=== PATIENT | female | born 1965 | race Caucasian/White ===

== ENCOUNTER 2024-12-05 06:26 | Emergency (ER) | payer OTHER ==
[~2024-12-05] VITALS: Ht 149.9 cm; Wt 79.8 kg
[2024-12-05 06:57] LABS: BASOPHILS # (AUTO) 0.08 K/uL (0.00-0.20); BASOPHILS % (AUTO) 0.7 % (0.0-5.0); EOSINOPHILS # (AUTO) 0.36 K/uL (0.00-0.70); HEMATOCRIT 41.9 % (36-48); IMMATURE GRANULOCYTE ABSOLUTE 0.05 K/uL (0-1); LYMPHOCYTES # (AUTO) 4.3 K/uL (1.0-4.8); LYMPHOCYTES % (AUTO) 35.5 % (21.0-51.0); MEAN CORPUSCULAR HEMOGLOBIN 29.6 pg (27.0-33.0); MEAN CORPUSCULAR HGB CONC 32.9 g/dL (32.0-36.0); MEAN CORPUSCULAR VOLUME 89.7 fL (79-99); MONOCYTES # (AUTO) 0.7 K/uL (0.1-1.0); MONOCYTES % (AUTO) 5.7 % (3.0-13.0); NEUTROPHILS # (AUTO) 6.6 K/uL (1.8-7.7); NEUTROPHILS % (AUTO) 54.7 % (40.0-77.0); PLATELET COUNT (AUTO) 279 K/uL (130-400); RED BLOOD CELL COUNT(AUTO) 4.67 MIL/uL (4.00-5.50); RED CELL DISTRIBUTION WIDTH 14.1 % (11.0-15.5); WHITE BLOOD COUNT (AUTO) 12.1 K/uL (4.8-10.8)
--- NOTE | 2024-12-05 07:01 | ERN ---
General Chief Complaint: Abdominal Pain Stated Complaint: C/O ABD PAIN TO LEFT SIDE RADIATING TO BACK, N X V Time Seen by MD: 06:48 Source: patient History of Present Illness Initial Comments Patient is a 59-year-old female with past medical history of hypothyroidism and hyper cholesterol. She was woken from sleep today with extreme back pain located on the left side and it is now migrated to the front left lower quadrant of her abdomen. Emesis x1. She has did have a bowel movement just now that it was very small and did not really affect the pain much. She says she is also urinating very little. No fevers or chills no shortness of breath no chest pain. Timing/Duration: 1-3 hours Allergies: Coded Allergies: sulfamethoxazole (Unverified Allergy, Unknown, 12/05/24) trimethoprim (Unverified Allergy, Unknown, 12/05/24) Past Medical History Past Medical History: High Cholesterol, Hypothyroid Past Surgical History: Hysterectomy, Cholecystectomy, Constitutional: (-) chills, (-) diaphoresis, (-) fever, (-) malaise, (-) weakness, (-) other documentation EENTM: (-) eye pain, (-) blurred vision, (-) tearing, (-) double vision, (-) ear pain, (-) ear discharge, (-) nose pain, (-) nose congestion, (-) throat pain, (-) Throat swelling, (-) mouth pain, (-) tooth pain, (-) mouth swelling, (-) other documentation Respiratory: (-) cough, (-) orthopnea, (-) short of breath, (-) stridor, (-) wheezing, (-) other documentation Cardiovascular: (-) chest pain, (-) edema, (-) palpitations, (-) syncope, (-) dyspnea on exertion, (-) other documentation Gastrointestinal/Abdominal: (+) nausea, (+) vomiting Genitourinary: (-) vaginal discharge, (-) vaginal bleeding, (-) dysuria, (-) frequency, (-) hematuria, (-) pain, (-) other documentation Musculoskeletal: (-) Neck pain, (-) back pain, (-) Flank Pain, (-) joint pain, (-) joint swelling, (-) muscle pain, (-) muscle stiffness, (-) gout, (-) other documentation Skin: (-) laceration, (-) contusion, (-) abrasion, (-) abscess, (-) rash, (-) change in color, (-) change in hair, (-) change in nails, (-) diaphoresis, (-) dryness, (-) other documentation Physical Exam Orientation: (+) oriented x 3 Head/Face Trauma: No Eye: bilateral eye normal inspection, bilateral eye PERRL, bilateral eye EOMI Ear, Nose, Throat: (+) hearing grossly normal, (+) normal ENT inspection, (+) moist mucous membraine Neck: (+) normal inspection, (+) supple, (+) full range of motion Respiratory: (+) chest non-tender, (+) lungs clear Heart: (+) regular, (+) no gallop Vascular: (+) no edema, (+) normal peripheral pulse Gastrointestinal: (+) soft, (+) non-tender, (+) no organomegaly, (+) bowel sound present Results Laboratory and Microbiology Lab and Micro Result Laboratory Tests Test 12/05/24 06:50 12/05/24 08:15 White Blood Count 12.1 K/uL (4.8-10.8) H Red Blood Count 4.67 MIL/uL (4.00-5.50) Hemoglobin 13.8 g/dL (12.0-16.0) Hematocrit 41.9 % (36-48) Mean Corpuscular Volume 89.7 fL (79-99) Mean Corpuscular Hemoglobin 29.6 pg (27.0-33.0) Mean Corpuscular Hemoglobin Concent 32.9 g/dL (32.0-36.0) Red Cell Distribution Width 14.1 % (11.0-15.5) Platelet Count 279 K/uL (130-400) Mean Platelet Volume 10.6 fL (7.5-10.5) H Immature Granulocyte % (Auto) 0.4 % (0-1) Neutrophils (%) (Auto) 54.7 % (40.0-77.0) Lymphocytes (%) (Auto) 35.5 % (21.0-51.0) Monocytes (%) (Auto) 5.7 % (3.0-13.0) Eosinophils (%) (Auto) 3.0 % (0.0-8.0) Basophils (%) (Auto) 0.7 % (0.0-5.0) Neutrophils # (Auto) 6.6 K/uL (1.8-7.7) Lymphocytes # (Auto) 4.3 K/uL (1.0-4.8) Monocytes # (Auto) 0.7 K/uL (0.1-1.0) Eosinophils # (Auto) 0.36 K/uL (0.00-0.70) Basophils # (Auto) 0.08 K/uL (0.00-0.20) Absolute Immature Granulocyte (auto 0.05 K/uL (0-1) Nucleated Red Blood Cells 0.0 % (0.0-0.19) Sodium Level 140 mmol/L (136-145) Potassium Level 3.9 mmol/L (3.5-5.1) Chloride Level 106 mmol/L (101-111) Carbon Dioxide Level 30 mmol/L (21-32) Blood Urea Nitrogen 11 mg/dL (7-18) Creatinine 0.5 mg/dL (0.5-1.0) Glomerular Filtration Rate Calc 108 mL/min (>90) Random Glucose 122 mg/dL (70-105) H Total Calcium 9.2 mg/dL (8.5-10.1) Lipase 24 U/L (16-77) Urine Color LIGHT-YELLOW (YELLOW) Urine Appearance CLEAR (CLEAR) Urine pH 5.5 (5.0-8.0) Urine Specific [place] 1.016 (1.001-1.031) Urine Protein NEGATIVE mg/dL (NEGATIVE) Urine Glucose (UA) NEGATIVE mg/dL (NEGATIVE) Urine Ketones NEGATIVE mg/dL (NEGATIVE) Urine Occult Blood +- (TRACE) (NEGATIVE) H Urine Nitrate NEGATIVE (NEGATIVE) Urine Bilirubin NEGATIVE mg/dL (NEGATIVE) Urine Urobilinogen 0.2 mg/dL (0.2-1.0) Urine Leukocyte Esterase NEGATIVE Mone/uL Urine RBC 2-5 /HPF (0-1) H Urine WBC 0-1 /HPF (0-1) Urine Squamous Epithelial Cells RARE /HPF (0-2) Urine Bacteria None /HPF (None Seen) MDM MDM: Differential diagnosis: Constipation, renal colic, bowel obstruction, pyelonephrosis, pancreatitis, dehydration with muscle spasms. Rationale: Tests considered and ordered secondary to shared decision making include: Previous outside records reviewed: Old ER visits. Risk of complication and/or morbidity or mortality of patient management: None Medications-Per medication reconciliation Need for hospitalization: Patient does meet criteria for hospitalization. Need for emergency major/minor surgery: No There are no social concerns with this patient. Prescription drug management Prescriptions will include symptomatic care Patient's prior external medical records from other ER visits were reviewed by me as indicated. Prior testing and results from previous visits were reviewed. Prior tests were taken into account with medical decision making and resource utilization, independent historian/historians were used to obtain complete medical history. I independently interpreted the test that were performed, results were reviewed by me and considered findings on radiology if ordered. I have ordered a KUB. A L of LR Toradol CBC UA and a lipase Dr. Moraes: I took over care at 7:00 a.m.. Please note that there was a delay in care due to the prolonged CT scan timing. There was a nursing shortage prolonging the care of the patient. Patient's chief complaint is back pain in the left side left lower abdominal pain. Historian: Patient seen comorbidities: Dyslipidemia, hypothyroidism, hysterectomy, cholecystectomy, Limitations by social determinants of health: None Differential diagnosis includes constipation, colic, bowel obstruction, pyelo, pancreatitis, dehydration, muscle spasms, MSK pain, other. Vital signs: Stable, remained stable in the ER. Mild hypertension. Labs (independently interpreted by me): Leukocytosis 12.1 K no shift or bands. Chemistry normal. Lipase normal. Urinalysis shows occult blood otherwise unremarkable. KUB (independently interpreted by me): No acute abnormalities CT scan of the abdomen and pelvis without contrast (independently interpreted by me): No acute abnormalities. Patient received 1 L of lactated Ringer's, 30 mg IV Toradol, IV Dilaudid, and oral Tylenol here in the ER. On re-evaluation patient's pain is controlled. There was no life threats. No surgical pathology. Stable labs stable vital signs normal imaging. We will discharge with symptomatic relief including pain medications and recommend the PCP follow up. ED Course Orders Procedure Category Date Status Time Vital Signs Per CPOE 12/05/24 Transmitted Routine 06:38 Saline Lock Iv CPOE 12/05/24 Transmitted 06:38 Cbc With Differential LAB 12/05/24 Complete 06:38 Lipase LAB 12/05/24 Complete 06:38 Urinalysis Profile LAB 12/05/24 Complete 06:38 Basic Metabolic Panel LAB 12/05/24 Complete 06:38 Lactated Ringers PHA 12/05/24 Complete 1000ml (Lactated 06:49 Ketorolac PHA 12/05/24 Complete Tromethamine 30mg/Ml 07:00 Abd 1vw RAD 12/05/24 Resulted 06:55 Hydromorphone 1 Mg PHA 12/05/24 Complete Inj (Dilaudid 1mg Inj 08:00 Iohexol (Omnipaque) PHA 12/05/24 Complete 09:57 Ct Abdomen/Pelvis CT 12/05/24 Resulted W/Contrast 07:41 Acetaminophen 325 Tab PHA 12/05/24 Complete (Tylenol 325mg Tab 11:30 Current Medications Medications (Trade) Dose Ordered Sig/Lisbeth Route PRN Reason Start Time Stop Time Status Last Admin Dose Admin Acetaminophen (TYLenol 325MG TAB) 650 mg ONCE ONCE PO 12/05/24 11:30 12/05/24 11:31 DC 12/05/24 11:11 Hydromorphone HCl (DiLAUDid 1MG INJ) 1 mg ONCE ONCE IVP 12/05/24 08:00 12/05/24 08:01 DC Iohexol (Omnipaque) 75 ml STK-MED ONCE IV 12/05/24 09:57 12/05/24 09:58 DC Ketorolac Tromethamine (toRADol) 30 mg ONCE ONCE IVP 12/05/24 07:00 12/05/24 07:01 DC 12/05/24 07:04 Lactated Ringer's (Lactated Ringers 1000ml) 1,000 ml BOLUS STAT IV 12/05/24 06:49 12/05/24 06:51 DC 12/05/24 07:04 Vital Signs Date Time Temp Pulse Resp B/P (MAP) Pulse Ox O2 Delivery O2 Flow Rate FiO2 12/05/24 10:26 97.2 76 16 153/80 100 Room Air* 0 21 12/05/24 07:39 97.2 68 16 150/97 97 Room Air* 0 21 12/05/24 06:56 97.5 76 20 150/97 99 Room Air* 0 12/05/24 06:28 97.3 75 20 160/85 99 Room Air DX & DISP Disposition: Discharge Departure Impression: Primary Impression: Left flank pain Condition: Stable Scripts Meloxicam (Meloxicam) 15 Mg Tablet 15 MG PO DAILY PRN for PAIN for 10 Days, #10 TAB Prov: STEPHANIE MORAES DO 12/05/24 Additional Instructions: There are no dangerous findings on your workup here today. Your pain may be musculoskeletal related. Your lab work (CBC with differential, metabolic panel, lipase, urinalysis) does show a very small amount of blood in your urine but is otherwise unremarkable. The CT scan of your abdomen and pelvis does not show any abnormalities. The x- ray of your abdomen does not show any abnormalities. You received IV pain medicine here in the ER. I have prescribed meloxicam, which is an anti-inflammatory pain medication. You can take this once per day for pain. Since the diagnosis is unclear, I recommend follow up with the primary doctor in 2-4 days for re-evaluation to continue your workup. Please return to the emergency department if you have any concerns. Referrals: ESME MARCUS (PCP) YAZ BAIRES MD Dec 05, 2024 07:01 STEPHANIE MORAES DO Dec 05, 2024 11:54
[2024-12-05] MEDS: LACTATED RINGERS 1000ML IV STA (07:04)
[2024-12-05] MEDS: ketOROlac 30MG VIAL (30MG/ML) IVP ONE (07:04)
[2024-12-05 07:08] LABS: CREATININE 0.5 mg/dL (0.5-1.0); POTASSIUM 3.9 mmol/L (3.5-5.1)
--- NOTE | 2024-12-05 07:49 | HMCIMG ---
ABD 1VW HISTORY: Abdominal pain COMPARISON: None FINDINGS: A frontal projection of the abdomen was obtained. Post cholecystectomy changes are seen. A nonspecific bowel gas pattern is seen. Fecal material is seen in the colon. Degenerative changes of the thoracolumbar spine are noted. IMPRESSION: 1. A nonspecific bowel gas pattern is seen.
[2024-12-05] MEDS: hydroMORPHone 1 MG INJ IVP ONE (07:56)
[2024-12-05 08:33] LABS: APPEARANCE,URINE CLEAR (CLEAR); BILIRUBIN,URINE NEGATIVE (NEGATIVE); COLOR,URINE LIGHT-YELLOW (YELLOW); GLUCOSE, URINE (UA) NEGATIVE (NEGATIVE); KETONES,URINE NEGATIVE (NEGATIVE); LEUKOCYTE ESTERASE ,URINE NEGATIVE Leu/uL (NEGATIVE); NITRATE,URINE NEGATIVE (NEGATIVE); PH,URINE 5.5 (5.0-8.0); PROTEIN,URINE NEGATIVE (NEGATIVE); UROBILINOGEN,URINE 0.2 mg/dL (0.2-1.0)
[2024-12-05 08:40] LABS: ADD UA MICROSCOPIC YES
[2024-12-05 08:51] LABS: MUCUS,URINE RARE LPF (None Seen); SQUAMOUS EPITHELIAL CELL,UR RARE /HPF (0-2); WBC,URINE 0-1 /HPF (0-1)
[2024-12-05] MEDS ORDERED: IOHEXOL-350 75 ML VIAL IV ONE (09:57)
[2024-12-05] MEDS: acetaMINOPHEN 325 MG TAB PO ONE (11:11)
--- NOTE | 2024-12-05 11:23 | HMCIMG ---
CT ABDOMEN/PELVIS W/CONTRAST HISTORY: Left-sided abdominal pain COMPARISON: 10/28/2015 TECHNIQUE: Multiple sequential axial images of the abdomen and pelvis were obtained from the dome of the diaphragm through symphysis pubis. Patient was not given contrast through intravenous route. Oral contrast was not given. FINDINGS: No pleural effusion is seen bilaterally. There is no evidence of parenchymal disease or pulmonary nodule of the visualized lower lungs. Degenerative changes of the thoracolumbar spine are present. The heart is not enlarged. Liver measured 22 cm. Status post cholecystectomy changes are seen. There is left adrenal nodule measuring 2 cm may be related to hemangioma. This was also seen on previous study unchanged. The liver, spleen, adrenal glands and pancreas are unremarkable. There is no evidence of hydronephrosis bilaterally. No evidence of renal stone is seen. Fecal material is seen in the colon. There are normal size retroperitoneal and mesenteric lymph nodes. No ascites is seen. Atherosclerotic changes are present. Pelvic sidewalls are symmetric bilaterally. Bladder is poorly distended. IMPRESSION: 1. No acute findings. CT was performed with one or more following dose reduction techniques: automated exposure control, adjustment of the mA and kv according to patient's size, or use of a iterative reconstruction technique.
[2024-12-05] MEDS ORDERED: MELO-108 PO (11:54)
[2024-12-05] MEDS: polyETHYLene GLYCol 3350 17 GM POWD.PACK PO ONE (12:25)
[2024-12-05 13:22] VITALS: BP 153/80; PULSE 71; RESP 16; TEMP 97.6; O2SAT 98
--- NOTE | 2024-12-05 13:26 | NUR ---
PT AAOX4 , STABLE NO C/O PAIN, PT GIVEN RX FOR PHARMACY WITH [facility] TODAY, NO IV AT THIS TIME, INSTRUCTION GIVEN VERBALZIED UNDERSTANDING. PT DRIVEN HOME BY .
== END 2024-12-05 13:25 | disposition home or self-care (01) ==
LOC: EDH 06:26
DX: R10.32 Left lower quadrant pain (principal); E03.9 Hypothyroidism, unspecified; E78.00 Pure hypercholesterolemia, unspecified; Z88.1 Allergy status to other antibiotic agents; Z88.2 Allergy status to sulfonamides; Z90.49 Acquired absence of other specified parts of digestive tract; Z90.710 Acquired absence of both cervix and uterus
CPT/HCPCS: 99285; 74177; 96374; 96361; 80048; 83690; 85025; 81001; 36415; 74018; J1885; J7120; Q9967; J1171